=== PATIENT | female | born 1960 | race Caucasian/White ===

== ENCOUNTER 2016-08-03 15:16 | Observation (INO) | payer BC ==
[~2016-08-03] VITALS: Ht 170.2 cm; Wt 90.5 kg
[~2016-08-03 15:16] MED LIST: ASPI81TA11 OR; BIOT5000 PO; BUPR100CR PO; CARV3.12 PO; FISH1000 PO; GABA300C3 PO; GLUCTAB PO; LISI-363 PO; LORA5SOL3 PO; MULT-65 PO; PRAV20 PO; PROT40TA PO
[2016-08-03 15:19] VITALS: BP 122/81; PULSE 96; RESP 18; TEMP 97.9; O2SAT 96
[2016-08-03] MEDS ORDERED: NORT10CA PO (16:54)
[2016-08-03] MEDS ORDERED: GABA800T PO (16:54)
[2016-08-03] MEDS ORDERED: LORA-361 PO (16:54)
[2016-08-03] MEDS ORDERED: NITR1SUB3 SL (16:54)
[2016-08-03] MEDS ORDERED: BUPR300T PO (16:54)
[2016-08-03] MEDS ORDERED: CYAN100025 SL (16:54)
[2016-08-03] MEDS ORDERED: ASPI-110 PO (16:54)
[2016-08-03] MEDS ORDERED: CARV3.12 PO (16:54)
[2016-08-03] MEDS ORDERED: CALCTAB92 PO (16:54)
[2016-08-03] MEDS ORDERED: RANI150T PO (16:54)
[2016-08-03] MEDS ORDERED: LISI-515 PO (16:54)
[2016-08-03] MEDS ORDERED: PANT40TA3 PO (16:54)
[2016-08-03] MEDS ORDERED: MOBI15TA PO (16:54)
[2016-08-03] MEDS ORDERED: METF500T PO (16:54)
[2016-08-03] MEDS ORDERED: PRAV40TA2 PO (16:54)
--- NOTE | 2016-08-03 16:54 | PD ---
HPI Chief Complaint: Chest Pain Time Seen by Provider: 16:51 Travel History International Travel<30 days: No Contact w/Intl Traveler<30days: No Traveled to known affect area: No History of Present Illness HPI 56-year-old female that presents to the ED for evaluation of chest pain ongoing for the past 2-3 days. Per patient she has a history of hypertension, diabetes , high cholesterol as well as history of GERD and neuropathy. Patient states that for the past 2-3 days she's been having consistent chest pain on the mid chest that radiates to the neck. Per patient she was given nitroglycerin and aspirin at the doctor's office where she was seen for this today and was recommended to come here immediately to get evaluated for heart. She denies any history of heart disease on herself. She denies any stress test recently. She has no materials technician out of the PCP who recommended that she go see Dr Nguyen but she has not been seen by him. She states that her chest pain did improve with the medications but this since come back. She denies any numbness , tilling, weakness. No trauma. No recent travel. No cough or runny nose. Per patient the pain is 5 out of 10. No urinary or bowel movement issues. History of MRSA. PFSH Past Medical History Hx Anticoagulant Therapy: Yes (BABY ASA ) Blood Disorders: No Cardiovascular Problems: Yes (HTN ) Cerebrovascular Accident: Yes Diabetes: Yes Patient Takes Glucophage: Yes Diminished Hearing: No Gastrointestinal Disorders: No Genitourinary: No Hypertension: Yes Neurologic: No Reproductive: No Respiratory: No Influenza Vaccination: Yes ?: Not Menopausal: Yes : 2 Para: 2 Past Surgical History Section: Yes (2) Other Surgery: Yes (CESAERIAN SECTIONS) Social History Alcohol Use: No Tobacco Use: No (e cig ) Substance Use: No Allergies-Medications (Allergen,Severity, Reaction): Coded Allergies: *MDRO Multi-Drug Resistant Organism (Verified Adverse Reaction, Unknown, ) MRSA buttock abscess 05/2015 Reported Meds & Prescriptions Reported Meds & Active Scripts Active Reported Ranitidine (Ranitidine HCl) 150 Mg Tab 150 Mg PO BID Pravastatin 40 Mg Tab 40 Mg PO DAILY Pantoprazole (Pantoprazole Sodium) 40 Mg Tab 40 Mg PO DAILY Nortriptyline (Nortriptyline HCl) 10 Mg Cap 20 Mg PO HS Metformin (Metformin HCl) 500 Mg Tab 500 Mg PO DAILY With a meal Mobic (Meloxicam) 15 Mg Tab 15 Mg PO DAILY Claritin (Loratadine) 10 Mg Tab 10 Mg PO DAILY Gabapentin 800 Mg Tab 800 Mg PO TID Carvedilol 3.125 Mg Tab 3.125 Mg PO BID Calcium Citrate + D (Calcium Citrate-Vitamin D) 315-200 Mg-Unit Tab 1 Tab PO DAILY Bupropion HCl ER 24 HR (Bupropion HCl) 300 Mg Tab 300 Mg PO DAILY B-12 (Cyanocobalamin) 1,000 Mcg Subl 1,000 Mcg SL DAILY Aspirin 81 (Aspirin) 81 Mg Tabdr 81 Mg PO DAILY Nitroglycerin SL (Nitroglycerin) 0.4 Mg Subl 0.4 Mg SL DIRECTED PRN ONE TABLET UNDER THE TONGUE NEEDED FOR CHEST PAIN, MAY REPEAT EVERY FIVE MINUTES FOR A TOTAL OF 3 DOSES OR CALL 911 IF NO RELIEF Lisinopril 20 Mg Tab 20 Mg PO DAILY Review of Systems Except as stated in HPI: all other systems reviewed are Neg Physical Exam Narrative GENERAL: SKIN: Warm and dry. HEAD: Atraumatic. Normocephalic. EYES: Pupils equal and round. No scleral icterus. No injection or drainage. ENT: No nasal bleeding or discharge. Mucous membranes pink and moist. Tongue is midline. No uvula deviation. NECK: Trachea midline. No JVD. CARDIOVASCULAR: Regular rate and rhythm. No murmurs, S3, S4. Chest pain is not reproducible with touch. RESPIRATORY: No accessory muscle use. Clear to auscultation. Breath sounds equal bilaterally. GASTROINTESTINAL: Abdomen soft, non-tender, nondistended. Hepatic and splenic margins not palpable. MUSCULOSKELETAL: Extremities without clubbing, cyanosis, or edema. No obvious deformities. Full range of motion of the upper and lower extremities bilaterally. 2+ pulses bilaterally. NEUROLOGICAL: Awake and alert. No obvious cranial nerve deficits. Motor grossly within normal limits. Five out of 5 muscle strength in the arms and legs. Normal speech. PSYCHIATRIC: Appropriate mood and affect; insight and judgment normal. Data Data Last Documented VS Vital Signs Date Time Temp Pulse Resp B/P Pulse Ox O2 Delivery O2 Flow Rate FiO2 08/03/16 15:19 97.9 96 18 122/81 96 Orders Electrocardiogram (08/03/16 ) Complete Blood Count With Diff (08/03/16 16:00) Troponin I (08/03/16 16:00) Prothrombin Time / Inr (Pt) (08/03/16 16:00) Act Partial Throm Time (Ptt) (08/03/16 16:00) Comprehensive Metabolic Panel (08/03/16 16:00) Chest, Single Ap (08/03/16 ) Ckmb (Isoenzyme) Profile (08/03/16 16:36) Admit Order (Ed Use Only) (08/03/16 17:51) Labs Laboratory Tests Test 08/03/16 16:20 White Blood Count 7.0 TH/MM3 Red Blood Count 4.95 MIL/MM3 Hemoglobin 15.4 GM/DL Hematocrit 45.0 % Mean Corpuscular Volume 90.8 FL Mean Corpuscular Hemoglobin 31.0 PG Mean Corpuscular Hemoglobin 34.2 % Concent Red Cell Distribution Width 13.6 % Platelet Count 155 TH/MM3 Mean Platelet Volume 9.6 FL Neutrophils (%) (Auto) 58.2 % Lymphocytes (%) (Auto) 30.9 % Monocytes (%) (Auto) 6.1 % Eosinophils (%) (Auto) 4.3 % Basophils (%) (Auto) 0.5 % Neutrophils # (Auto) 4.1 TH/MM3 Lymphocytes # (Auto) 2.2 TH/MM3 Monocytes # (Auto) 0.4 TH/MM3 Eosinophils # (Auto) 0.3 TH/MM3 Basophils # (Auto) 0.0 TH/MM3 CBC Comment DIFF FINAL Differential Comment Sodium Level 141 MEQ/L Potassium Level 3.9 MEQ/L Chloride Level 104 MEQ/L Carbon Dioxide Level 28.9 MEQ/L Anion Gap 8 MEQ/L Blood Urea Nitrogen 8 MG/DL Creatinine 0.88 MG/DL Estimat Glomerular Filtration 67 ML/MIN Rate Random Glucose 89 MG/DL Calcium Level 10.0 MG/DL Total Bilirubin 0.3 MG/DL Aspartate Amino Transf 17 U/L (AST/SGOT) Alanine Aminotransferase 30 U/L (ALT/SGPT) Alkaline Phosphatase 113 U/L Troponin I LESS THAN 0.02 NG/ML Total Protein 7.6 GM/DL Albumin 4.1 GM/DL MDM Medical Decision Making Medical Screen Exam Complete: Yes Emergency Medical Condition: Yes Medical Record Reviewed: Yes Interpretation(s) CBC & BMP Diagram 08/03/16 16:20 troponin and CKMB WNL EKg shows sinus rhythm with no sign of acute ischemia or arrhythmia read by me and attending. CXR negative for acute disease Differential Diagnosis Chest pain versus atypical chest pain versus ACS versus pneumonia Narrative Course 56-year-old female that presents to the ED for evaluation of chest pain. Patient was properly examined and was found to have signs and symptoms concerning for cardiac chest pain. Patient does have risk factors including age , high blood pressure, high cholesterol, diabetes. Patient had some improvement of symptoms with nitroglycerin and aspirin. At this time I recommend cardiac workup. Patient does bring paperwork from the office visit today that state that they wanted patient to be admitted for FURTHER cardiac workup as well. Labs and imaging here showed no sign of acute disease. Patient was reassured. This time I do recommend admission to the chest pain center which was the same thing to his primary care doctor recommended. Patient is agreeable with this plan. Patient was admitted to the chest pain center. Diagnosis Primary Impression: Chest pain in adult Admitting Information Admitting Physician Requests: Observation Clifford Perdomo August 03, 2016 16:54
[2016-08-03 17:08] LABS: AUTOMATED NEUTROPHIL # 4.1 TH/MM3 (1.8-7.7); BASOPHIL % 0.5 % (0.0-2.0); EOSINOPHIL # 0.3 TH/MM3 (0-0.4); EOSINOPHIL % 4.3 % (0.0-4.0); LYMPH % 30.9 % (9.0-44.0); LYMPHOCYTE # 2.2 TH/MM3 (1.0-4.8); MEAN CELL VOLUME 90.8 FL (80.0-100.0); MEAN CORPUSCULAR HGB CONC 34.2 % (32.0-36.0); MONO % 6.1 % (0.0-8.0); NEUT % 58.2 % (16.0-70.0); PLATELET COUNT 155 TH/MM3 (150-450); RED BLOOD COUNT 4.95 MIL/MM3 (4.00-5.30); RED CELL DISTRIBUTION WIDTH 13.6 % (11.6-17.2)
[2016-08-03 17:10] LABS: HEMO FLAGS DIFF FINAL
[2016-08-03 17:20] LABS: ALKALINE PHOSPHATASE 113 U/L (45-117); TOTAL BILIRUBIN ADULT 0.3 MG/DL (0.2-1.0)
[2016-08-03 17:21] LABS: ALT (GPT) 30 U/L (10-53); AST (GOT) 17 U/L (15-37); BICARBONATE 28.9 MEQ/L (21.0-32.0); BLOOD UREA NITROGEN 8 MG/DL (7-18); CHLORIDE 104 MEQ/L (98-107); GLOMERULAR FILTRATION RATE 67 ML/MIN (>89); POTASSIUM 3.9 MEQ/L (3.5-5.1); SODIUM (NA) 141 MEQ/L (136-145)
[2016-08-03 17:22] LABS: ANION GAP 8 MEQ/L (5-15)
--- NOTE | 2016-08-03 17:43 | RADRPT ---
EXAM DATE/TIME: 08/03/2016 16:55 [facility] COMPARISON: CHEST SINGLE AP, August 25, 2014, 10:04. INDICATIONS : Chest pain starting today MEDICAL HISTORY : None. SURGICAL HISTORY : None. ENCOUNTER: Initial ACUITY: 1 day PAIN SCORE: 7/10 LOCATION: Left chest FINDINGS: A single view of the chest demonstrates the lungs to be symmetrically aerated without evidence of mas s, infiltrate or effusion. The cardiomediastinal contours are unremarkable. Osseous structures are intact. CONCLUSION: No acute disease. Morteza Nam MD on August 03, 2016 at 17:40 Board Certified Radiologist. This report was verified electronically.
[2016-08-03 17:56] LABS: CREATINE KINASE 79 U/L (26-192)
[2016-08-03 18:00] VITALS: O2SAT 99
[2016-08-03] MEDS ORDERED: SODIUM CHLORIDE 0.9% FLUSH 10 ML FLUSH IV FLUSH PRN (18:00)
[2016-08-03] MEDS ORDERED: ONDANSETRON HCL 4 MG/2 ML VIAL IV PRN (18:00)
[2016-08-03] MEDS ORDERED: ACETAMINOPHEN 500 MG CPLT PO PRN (18:00)
[2016-08-03 18:13] LABS: APTT (PATIENT) 23.8 SEC (24.3-30.1); INTERNATIONAL NORMALIZED RATIO 0.9 RATIO; PROTHROMBIN TIME - PATIENT 10.2 SEC (9.8-11.6)
[2016-08-03] MEDS: ACETAMINOPHEN/HYDROcodone 325 MG/7.5 MG TAB PO PRN ×2 (18:56→22:31)
[2016-08-03 19:23] VITALS: O2SAT 96
[2016-08-03 19:56] VITALS: BP 159/101; PULSE 86; RESP 18; TEMP 98.3; O2SAT 97
[2016-08-03 20:40] VITALS: PULSE 86
[2016-08-03] MEDS ORDERED: SODIUM CHLORIDE 0.9% FLUSH 10 ML FLUSH IV FLUSH SCH (21:00)
[2016-08-03 21:58] LABS: CREATINE KINASE 56 U/L (26-192)
[2016-08-04] VITALS (7 sets, daily range): BP systolic 115–183; BP diastolic 65–98; PULSE 55–97; RESP 12–18; TEMP 97.6–98.4; O2SAT 96–100
[2016-08-04 00:27] LABS: CREATINE KINASE 50 U/L (26-192)
[2016-08-04] MEDS: ACETAMINOPHEN/HYDROcodone 325 MG/7.5 MG TAB PO PRN (03:36)
--- NOTE | 2016-08-04 09:05 | HHI.HP ---
HPI Primary Care Physician Rosaline Bhat MD Chief Complaint Chest pain History of Present Illness 56-year-old female with known hypertension, diabetes, and hyperlipidemia presents to emergency for for further evaluation of chest pain. Onset 3 days ago. Location left anterior chest. Characterized as "an elephant sitting on my chest." Precipitating factors she relates to stress around her mother's illness and fighting with her sister. Pain has been consistent with waxing and waning in severity. No known relieving factors. No radiation of pain. No associated symptoms. Position, movement, or deep breathing does not make pain better or worse. She has never had chest discomfort like this in the past. Denies any past cardiac testing or catheterizations. Review of Systems General: No fatigue,weakness, fever, chills, recent illness, or change in appetite HEENT: No HAM, no nasal congestion or drainage, no dysphasia CV: As stated above. Continues to have chest pressure although much improved. Chest pressure has been constant 3 days. No palpitations or dizziness RESP: No SOB, cough, wheeze, or recent URI GI: No nausea, vomiting, bowel changes, diarrhea, constipation, pain, distention , melena, blood in the stool. No unintentional weight gain or weight loss : No dysuria, urgency, frequency, or hematuria EXT: Bilateral lower extremities and bilateral hand neuropathy. No lower leg edema. MS: No discomfort or change in ROM, ambulates independently. NEURO: No change in memory, dizziness, difficulty with balance, LOC, motor/ sensory deficits PSYCH: No anxiety or depression, endorses situational stress regarding mother's health and conflict with sister regarding caring for her mother. SKIN: No rashes, no concerning lesions Past Family Social History Allergies: Coded Allergies: *MDRO Multi-Drug Resistant Organism (Verified Adverse Reaction, Unknown, ) MRSA buttock abscess 05/2015 Past Medical History Hypertension, diabetes type 2, hyperlipidemia, GERD, neuropathy, TIA (6 years ago), MRSA 05/17buttock abscess Past Surgical History Reported Medications Reported Meds & Active Scripts Active Reported Ranitidine (Ranitidine HCl) 150 Mg Tab 150 Mg QD Pravastatin 40 Mg Tab 40 Mg PO DAILY Pantoprazole (Pantoprazole Sodium) 40 Mg Tab 40 Mg PO DAILY Nortriptyline (Nortriptyline HCl) 10 Mg Cap 20 Mg PO HS Metformin (Metformin HCl) 500 Mg Tab 500 Mg PO DAILY With a meal Mobic (Meloxicam) 15 Mg Tab 15 Mg PO DAILY Claritin (Loratadine) 10 Mg Tab 10 Mg PO DAILY Gabapentin 800 Mg Tab 800 Mg PO TID Carvedilol 3.125 Mg Tab 3.125 Mg PO BID Calcium Citrate + D (Calcium Citrate-Vitamin D) 315-200 Mg-Unit Tab 1 Tab PO DAILY Bupropion HCl ER 24 HR (Bupropion HCl) 300 Mg Tab 300 Mg PO DAILY B-12 (Cyanocobalamin) 1,000 Mcg Subl 1,000 Mcg SL DAILY Aspirin 81 (Aspirin) 81 Mg Tabdr 81 Mg PO DAILY Lisinopril 20 Mg Tab 20 Mg PO DAILY Active Ordered Medications Current Medications Medications (Trade) Dose Ordered Sig/Robert Route Start Time Stop Time Status Last Admin (Tylenol) 500 mg Q4H PRN PO 08/03/16 18:00 (Monitor 7.5-325 Mg) 1 tab Q4H PRN PO 08/03/16 18:00 08/04/16 03:36 (Zofran Inj) 4 mg Q6H PRN IV 08/03/16 18:00 Family History Father had cardiac stents placed in his late 50s, mother and siblings do not have early onset cardiovascular disease Social History Known diabetes, hyperlipidemia, and hypertension. Quit smoking tobacco one year ago. Prior to quitting she smoked one half pack daily since age 20. Currently she smokes he cigarettes. Denies any current alcohol or illegal drug use, endorses past alcohol and drug use. Works part-time as a store clerk cashier, , and is active helping take care of her grandchildren. Past cardiac testing No formal cardiac testing. Has never had cardiac catheterization. Physical Exam Vital Signs Vital Signs Date Time Temp Pulse Resp B/P Pulse Ox O2 Delivery O2 Flow Rate FiO2 08/04/16 08:21 97.6 95 18 160/98 100 08/04/16 07:19 21 08/04/16 04:04 84 08/04/16 04:01 98.4 85 18 121/69 97 08/04/16 01:00 97 12 115/65 08/04/16 00:00 92 08/03/16 20:40 86 08/03/16 19:56 98.3 86 18 159/101 97 08/03/16 19:23 96 08/03/16 18:00 99 21 08/03/16 15:19 97.9 96 18 122/81 96 Physical Exam GENERAL: Alert WN, WD, NAD, pleasant, female who appears older than stated age HEAD: NC, AT EYES: Sclera clear, conjunctiva without injection, pupils equal and round ENT: Mucous membranes pink and moist NECK: Supple, no masses, trachea midline CV: RRR, without murmur, rub, gallop, no JVD, S1-S2 no S3-S4. No carotid bruits. RESP: Clear lungs throughout bilateral, no crackles, wheeze, rhonchi, symmetrical chest rise, nonlabored, able to speak in full sentences ABD: Soft, NT, ND, no masses, positive bowel tones EXT: Pulses +24, no dependent edema MS: Normal tone 4 extremities, nontender, no obvious deformities, full range of motion NEURO: CN II through CN XII grossly intact, motor strength 5/5, gait WNL PSYCH: A+O 3, pleasant affect, appropriate speech, appropriate mood and affect , insight and judgment SKIN: Normal turgor, normal texture, no lesions, no rashes Laboratory Laboratory Tests Test 08/03/16 08/03/16 08/03/16 08/03/16 16:20 17:40 20:35 23:30 White Blood Count 7.0 Red Blood Count 4.95 Hemoglobin 15.4 Hematocrit 45.0 Mean Corpuscular Volume 90.8 Mean Corpuscular Hemoglobin 31.0 Mean Corpuscular Hemoglobin 34.2 Concent Red Cell Distribution Width 13.6 Platelet Count 155 Mean Platelet Volume 9.6 Neutrophils (%) (Auto) 58.2 Lymphocytes (%) (Auto) 30.9 Monocytes (%) (Auto) 6.1 Eosinophils (%) (Auto) 4.3 Basophils (%) (Auto) 0.5 Neutrophils # (Auto) 4.1 Lymphocytes # (Auto) 2.2 Monocytes # (Auto) 0.4 Eosinophils # (Auto) 0.3 Basophils # (Auto) 0.0 CBC Comment DIFF FINAL Differential Comment Sodium Level 141 Potassium Level 3.9 Chloride Level 104 Carbon Dioxide Level 28.9 Anion Gap 8 Blood Urea Nitrogen 8 Creatinine 0.88 Estimat Glomerular Filtration 67 Rate Random Glucose 89 Calcium Level 10.0 Total Bilirubin 0.3 Aspartate Amino Transf 17 (AST/SGOT) Alanine Aminotransferase 30 (ALT/SGPT) Alkaline Phosphatase 113 Total Creatine Kinase 79 56 50 Troponin I LESS THAN 0.02 LESS THAN 0.02 LESS THAN 0.02 Total Protein 7.6 Albumin 4.1 Prothrombin Time 10.2 Prothromb Time International 0.9 Ratio Activated Partial 23.8 Thromboplast Time Result Diagram: 08/03/16 1620 08/03/16 1620 Imaging Last Impressions Chest X-Ray 08/03/16 0000 Signed Impressions: Service Date/Time: Wednesday, August 03, 2016 16:55 - CONCLUSION: No acute disease. Morteza Nam MD Course EKGs Normal sinus rhythm, normal axis, no ST or T-segment changes Assessment and Plan Assessment and Plan Chest painadmitted to chest pain center. Ruled out with 3 sets of EKGs, cardiac enzymes, and monitored overnight. Will be seen and evaluated by Dr. Lenny Johnson. Discussed the likelihood with patient that she will complete an exercise stress test. She is agreeable to plan of care. Naturally if exercise stress test is unremarkable she'll be later discharged home. Hypertensioncontinue lisinopril and carvedilol Diabetescontinue metformin Hyperlipidemiacontinue pravastatinneuropathy continue gabapentin Musculoskeletal painToradol 30 mg 1 IV dose. Discussed at discharge use of heating pad to affected area and may use over the counter Aleve or Motrin as needed for pain. Instructed to take with food. Jessica Francisco August 04, 2016 09:05
[2016-08-04] MEDS ORDERED: LORATADINE 10 MG TAB PO SCH (09:45)
[2016-08-04] MEDS ORDERED: buPROPion HCL 150 MG EXTENDED RELEASE TAB PO SCH (09:45)
[2016-08-04] MEDS ORDERED: PANTOPRAZOLE SOD 40 MG DELAYED RELEASE TAB PO SCH (10:00)
[2016-08-04] MEDS ORDERED: NITROGLYCERIN 0.4 MG SL 25 TABS/BTL SL PRN (10:00)
[2016-08-04] MEDS ORDERED: CARVEDILOL 3.125 MG TAB PO SCH (10:00)
[2016-08-04] MEDS ORDERED: LISINOPRIL 20 MG TAB PO SCH (10:00)
[2016-08-04] MEDS ORDERED: PRAVASTATIN SOD 40 MG TAB PO SCH (10:00)
[2016-08-04] MEDS ORDERED: ASPIRIN 325 MG TAB PO SCH (10:00)
[2016-08-04] MEDS ORDERED: metFORMIN HCL 500 MG TAB PO SCH (10:00)
--- NOTE | 2016-08-04 10:05 | EKG ---
Date Performed: 08/03/2016 Time Performed: 19:44:52 PTAGE: 56 years EKG: Sinus rhythm NORMAL ECG PREVIOUS TRACING : 08/03/2016 15.26 DOCTOR: Cruz King Interpretating Date/Time 08/04/2016 10:04:18
--- NOTE | 2016-08-04 10:23 | EKG ---
Date Performed: 08/03/2016 Time Performed: 15:26:53 PTAGE: 56 years EKG: Sinus rhythm NORMAL ECG INTERPRETATION BASED ON A DEFAULT AGE OF 40 YEARS PREVIOUS TRACING : 08/25/2014 09.46 DOCTOR: Cruz King Interpretating Date/Time 08/04/2016 10:21:58
--- NOTE | 2016-08-04 11:17 | HHI.DCPOC ---
Discharge Care Plan Diagnosis: (1) Musculoskeletal chest pain (2) Situational stress (3) Type 2 diabetes mellitus (4) Hypertension Goals to Promote Your Health * To prevent worsening of your condition and complications * To maintain your health at the optimal level Directions to Meet Your Goals Take your medications as prescribed Follow your dietary instruction Follow activity as directed Keep your appointments as scheduled Take your immunizations and boosters as scheduled If your symptoms worsen call your PCP, if no PCP go to Urgent Care Center or Emergency Room Smoking is Dangerous to Your Health. Avoid second hand smoke Call the 24-hour hour crisis hotline for domestic abuse at Jessica Francisco August 04, 2016 11:17
--- NOTE | 2016-08-04 11:41 | TR ---
Date Performed: 08/04/2016 Time Performed: 10:53:18 DOCTOR: Lenny Johnson DRUG LIST: CLINICAL HISTORY: REASON FOR TEST: REASON FOR ENDING: OBSERVATION: CONCLUSION: Tre protocol completd. Stopped sec to reaching target heart rate and leg fatigue. Maximum BG=830 Target HR Achieved=86.0% Maximum VI=391/94 Total Exercise Time=7:35. No reprod chest d iscomfort. No ectopy. No st t segment changes to sugg ischemia. Normal bp response. Good exercise lucian erance. Recovery quick and unremarkable. COMMENTS: Conclusion: Normal treadmill exercise. No evidence of ischemia.
[2016-08-04] MEDS ORDERED: KETOROLAC TROMETHAMINE 30 MG/ML (IVP) VIAL IV PUSH ONE (11:45)
[2016-08-04] MEDS ORDERED: GABAPENTIN 400 MG CAP PO SCH (13:00)
--- NOTE | 2016-08-04 22:01 | EKG ---
Date Performed: 08/03/2016 Time Performed: 23:32:20 PTAGE: 56 years EKG: Sinus rhythm NORMAL ECG PREVIOUS TRACING : 08/03/2016 19.44 DOCTOR: Cruz King Interpretating Date/Time 08/04/2016 21:53:12
== END 2016-08-04 15:31 | disposition home or self-care (01) ==
LOC: NEPE 15:16 → NEDA 17:53 → NEPFCDU 19:39
DX: R07.9 Chest pain, unspecified (principal); M79.1 Myalgia; I10 Essential (primary) hypertension; E78.5 Hyperlipidemia, unspecified; E11.40 Type 2 diabetes mellitus with diabetic neuropathy, unspecified; K21.9 Gastro-esophageal reflux disease without esophagitis; E78.00 Pure hypercholesterolemia, unspecified; F17.290 Nicotine dependence, other tobacco product, uncomplicated; Z79.01 Long term (current) use of anticoagulants; Z86.73 Personal history of transient ischemic attack (TIA), and cerebral infarction without residual deficits; Z88.8 Allergy status to other drugs, medicaments and biological substances; Z79.82 Long term (current) use of aspirin; Z79.84 Long term (current) use of oral hypoglycemic drugs; Z86.14 Personal history of Methicillin resistant Staphylococcus aureus infection; Z82.49 Family history of ischemic heart disease and other diseases of the circulatory system
CPT/HCPCS: 71010; 80053; 82550; 84484; 85025; 85610; 85730; 93005; 93017; 99285; G0378; J1885